=== PATIENT | male | born 1985 | race Caucasian/White ===

== ENCOUNTER 2019-01-23 23:16 | Emergency (ER) | payer MEDICAID ==
[2019-01-23 23:27] VITALS: BP 143/86
--- NOTE | 2019-01-23 23:35 | EDPHY ---
General Time Seen by Provider: 01/23/19 23:19 Narrative: CLINICAL IMPRESSION: CHRONIC LEFT MANDIBULAR LESION ASSESSMENT/PLAN: 33-year-old male presents to the emergency department under rest with Manflu for medical clearance. Patient has had a chronic open, ulcerative, intermittently losing lesion to the left mandible that he reports has been present for at least 1 year. He states he had surgery to his face and jaw over a year ago at [facility], was then incarcerated for over 6 months , has been unable to get back into his maxillofacial surgeon due to an overwhelming balance. He states from time to time he has purulent discharge and swelling to the area on his mandible that then spontaneously drains. He has had numerous courses of antibiotics. He has had some drainage tonight. No surrounding swelling, redness or warmth. No fevers or chills. No neck pain. X -rays show hardware near location of patient's wounds which may be the source of his chronic infections. A wound culture was obtained tonight. He was started on Bactrim no radiologic evidence to suggest osteomyelitis. No clinical signs of deep space abscess or necrotizing fasciitis. Referral to local maxillofacial surgeon provided when patient is released from intermediate. He was medically cleared for discharge to intermediate with Manflu. DIFFERENTIAL DX: Differential includes but not limited to chronic facial lesion, abscess, osteomyelitis, infected hardware ED PROCEDURES: See lab and/or imaging results below ED COURSE: xrays reviewed by myself at 11:57pm. Patient appears to have hardware along the left mandible at location of chronic wound. This may represent chronically infected hardware although does not need emergent evaluation tonight. No obvious signs of osteomyelitis. Will prescribe abx, wound culture pending. Will given maxillofacial referral when discharged from intermediate. CHIEF COMPLAINT: Medical clearance, jaw lesion HPI: 33-year-old male presents to the emergency department under rest with Manflu for medical clearance. Patient has had chronic skin wound to the left mandible for at least a year after undergoing surgery to the face following trauma. He does not know if he has hardware in this location. He reports no fevers or chills. He reports some discharge from the wound today but has had this intermittently over the last couple years and has had several courses of antibiotics. No neck swelling or difficulty handling secretions. No tongue swelling. He does not know if he has a history of MRSA. PAST MEDICAL HISTORY: See nurse triage See triage summary and nurse notes for addition applicable history Pertinent Past Surgical History: Maxillofacial surgery Family History: Noncontributory Social History: Currently under arrest REVIEW OF SYSTEMS: A full 10 point review of systems was negative except for those mentioned in HPI. PHYSICAL EXAM: General Appearance: Alert, oriented, appropriate, cooperative, NAD, well hydrated, non-toxic appearing, VSS, no hypoxia. HEENT: TMs are clear bilaterally no perforation or FB, no injection, no evidence of serous or mucopurulent otitis. Oropharynx clear is no erythema or exudates, no tonsillar hypertrophy or asymmetry. Dentition without abnormality. Chronic appearing, shallow, ulcerative lesion along the angle of the left mandible. There is a small amount of purulent discharge. No surrounding erythema, induration, fluctuance. No signs of facial abscess or facial cellulitis. No cervical adenopathy or neck mass. Floor of mouth soft. No evidence of Kaleb's. Neck: Supple, nontender, no lymphadenopathy, no midline pain, FROM, no meningismus. Skin: See above MEDICAL DECISION MAKING: Patient was seen independently. Secondary supervising physician at time of evaluation was: Dr. Sinclair. Diagnosis: Acute on chronic left mandibular lesion. New, requires workup Summary: See Assessment and Plan for summary of ED visit Independent visualization of images, tracing, or specimens: Yes. Patient Progress: Stable for discharge, medically cleared for intermediate. - History Smoking Status: Current every day smoker - Objective Vital Signs: Initial Vital Signs Temperature (C) 36.4 C 01/23/19 23:22 Heart Rate 87 01/23/19 23:22 Respiratory Rate 19 01/23/19 23:22 Blood Pressure 143/86 H 01/23/19 23:22 O2 Sat (%) 97 01/23/19 23:22 O2 Delivery Mode Room Air Allergies/Adverse Reactions: No Known Allergies Allergy (Unverified 01/23/19 23:22) Home Medications: Medication Instructions Recorded Sulfamethox/Tmp 800/160 mg 1 tab PO BID #14 tab 01/24/19 [Bactrim Ds] Medications Given: Discontinued Medications Trimethoprim/Sulfamethoxazole (Bactrim Ds) 1 ea PO EDNOW ONE PRN Reason: Protocol Stop: 01/24/19 00:03 Last Admin: 01/24/19 00:12 Dose: 1 ea Departure - Departure Disposition: Home, Routine, Self-Care Clinical Impression: Chronic wound of head Condition: Good Instructions: Sulfamethoxazole/Trimethoprim (By mouth), Chronic Wounds (ED) Additional Instructions: DISCHARGE INSTRUCTIONS FROM YOUR DOCTOR Thank you for visiting our emergency department today. You were treated by a physician assistant foreman today and your case was reviewed with our ED Attending physician. Please keep in mind that discharge from the emergency department does not mean that there is nothing wrong - it simply means that we have not identified an emergency condition that requires further evaluation or treatment in the hospital. You should always plan to follow up with primary care for re- evaluation of your condition in the next 2-3 days. If you have been referred to a specialist, please call as soon as possible (today or tomorrow) to schedule your follow up appointment at the appropriate time. THE WOUND ON HER JAW APPEARS TO BE LOCATED CLOSE TO METAL HARDWARE THAT YOU HAD PLACED SECONDARY TO FRACTURES. THIS NEEDS TO BE EVALUATED BY A MAXILLOFACIAL SURGEON. IF YOU ARE UNABLE TO RETURN TO THE SURGEON YOU SAW AT [facility], A NEW REFERRAL WAS GIVEN [facility]. PLEASE MAKE AN APPOINTMENT WHEN YOU ARE RELEASED FROM [facility]. A WOUND CULTURE WAS OBTAINED TONIGHT. ANTIBIOTICS WERE PRESCRIBED PENDING CULTURE RESULTS. DEFINITIVE MANAGEMENT MAY BE REMOVAL OF HARDWARE BY SURGEON. THIS DOES NOT NEED TO OCCUR EMERGENTLY TONIGHT. THERE ARE NO SIGNS OF INFECTION IN THE BONE. PLEASE RETURN TO THE EMERGENCY DEPARTMENT FOR SIGNIFICANT FACIAL SWELLING, REDNESS, JAW PAIN, DIFFICULTY OPENING THE JAW, NECK PAIN, HIGH FEVERS OR ANY OTHER CONCERNS. YOU WERE MEDICALLY CLEARED FOR DISCHARGE TO [facility]. People present with illnesses and injuries in different ways, and it is always possible that we have missed something. You may always return for re-evaluation if symptoms worsen or if they are not improving or if you develop new/different symptoms. Again, thank you for choosing our emergency department. We hope that you feel better. Referrals: NONE *PRIMARY CARE P,. [Primary Care Provider] - As per Instructions Vipul Lugo DDS [Doctor of Dental Surgery] - 5-7 days, call for appt. Prescriptions: Sulfamethox/Tmp 800/160 mg [Bactrim Ds] 1 tab PO BID #14 tab
[2019-01-24] MEDS ORDERED: SULFAMETHOX/TMP 800/160 MG 1 TAB PO ONE (00:02)
== END 2019-01-24 00:26 | disposition home or self-care (01) ==
DX: S01.80XA Unspecified open wound of other part of head, initial encounter (principal); X58.XXXA Exposure to other specified factors, initial encounter